=== PATIENT | female | born 1980 | race Caucasian/White ===

== ENCOUNTER 2018-12-04 12:58 | Emergency (ER) | payer OTHER ==
[2018-12-04 13:49] LABS: BASO % 0.5 % (0.0-2.0); EOS # 0.1 K/uL (0.0-0.7); EOS % 1.7 % (0.0-4.0); HEMOGLOBIN 13.8 g/dL (11.0-16.0); LYMPH # 1.9 K/uL (1.0-4.3); LYMPH % 26.9 % (20.0-40.0); MEAN CELL VOLUME 87.6 fL (81.0-99.0); MEAN CORPUSCULAR HEMOGLOBIN 28.8 pg (27.0-31.0); MEAN CORPUSCULAR HGB CONC 32.9 g/dL (33.0-37.0); MEAN PLATELET VOLUME 7.8 fL (7.2-11.7); MONO # 0.3 K/uL (0.0-0.8); NEUT # 4.7 K/uL (1.8-7.0); NEUT % 66.9 % (50.0-75.0); NRBC % 0.1 % (0.0-2.0); RBC 4.81 Mil/uL (3.80-5.20); RED CELL DISTRIBUTION WIDTH 12.9 % (11.5-14.5)
[2018-12-04 13:59] LABS: HCG,QUALITATIVE URINE NEGATIVE (NEGATIVE)
[2018-12-04 14:03] LABS: SQUAMOUS EPITHIAL 2 /hpf (0-5); URINE BILIRUBIN NEGATIVE (NEGATIVE); URINE BLOOD NEGATIVE (NEGATIVE); URINE CLARITY Clear (Clear); URINE COLOR Yellow (YELLOW); URINE GLUCOSE (UA) NORMAL (Normal); URINE LEUKOCYTE ESTERASE NEG Leu/uL (Negative); URINE PROTEIN NEGATIVE (NEGATIVE); URINE UROBILINOGEN NORMAL mg/dL (0.2-1.0)
[2018-12-04 14:06] LABS: ALB/GLOB RATIO 1.7 (1.0-2.1); ALBUMIN 4.7 g/dL (3.5-5.0); ALT/SGPT 15 U/L (9-52); AST/SGOT 34 U/L (14-36); BLOOD UREA NITROGEN 13 mg/dL (7-17); CALCIUM 9.3 mg/dl (8.6-10.4); GFR NON-AFRICAN AMERICAN > 60
--- NOTE | 2018-12-04 14:23 | C.PDOC ---
History Of Present Illness 38 year old female presents to the emergency department with complaints of headache described as occipital discomfort and pressure. 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 At the moment, patient states that the pain has recurred and she now has left- sided pressure in her occipital area and left jaw, radiating down her neck. Patient reports a chronic history of neck issues due to degenerative c-spine disease. Patient also reports stabbing left chest wall pain. Patient states that her musculoskeletal pain has existed for one year on and off, but the pain has gotten worse today. At work, patient's blood pressure was obtained to be 155/95, patient states her BP is normally around 90/50. Patient also reports a "strange sensation" in her left leg, but denies numbness, weakness, or visual disturbance. Time Seen by Provider: 12/04/18 13:26 Chief Complaint (Nursing): Dizziness/Lightheaded History Per: Patient History/Exam Limitations: no limitations Onset/Duration Of Symptoms: Days Current Symptoms Are (Timing): Still Present Quality: Pressure, "Pain" Preceeding Symptoms: denies: Visual Disturbances Associated Symptoms: denies: Blurred Vision, Nausea, Vomiting, Extremity Weakness Past Medical History Reviewed: Historical Data, Nursing Documentation, Vital Signs Vital Signs: Last Vital Signs Temp 98.9 F 12/04/18 13:22 Pulse 104 H 12/04/18 13:13 Resp 18 12/04/18 13:13 BP 122/70 12/04/18 13:13 Pulse Ox 100 12/04/18 13:13 - Medical History PMH: No Chronic Diseases Surgical History: No Surg Hx Family History: States: No Known Family Hx - Social History Hx Alcohol Use: Yes Hx Substance Use: No - Immunization History Hx Tetanus Toxoid Vaccination: No Hx Influenza Vaccination: Yes Hx Pneumococcal Vaccination: No Review Of Systems Constitutional: Negative for: Fever, Chills Eyes: Negative for: Vision Change Cardiovascular: Positive for: Chest Pain Musculoskeletal: Positive for: Neck Pain, Shoulder Pain, Other (jaw pain) Neurological: Positive for: Headache. Negative for: Weakness, Numbness Physical Exam - Physical Exam Appears: Non-toxic, No Acute Distress Skin: Normal Color, Warm, Dry Head: Atraumatic, Normacephalic Eye(s): bilateral: Normal Inspection, PERRL, EOMI Nose: Normal Oral Mucosa: Moist Neck: Normal, Supple, No Other (point tenderness) Chest: Symmetrical, Tenderness (slight muscular tenderness to left anterior pectoralis) Cardiovascular: Rhythm Regular, No Murmur Respiratory: Normal Breath Sounds, No Rales, No Rhonchi, No Wheezing Gastrointestinal/Abdominal: Soft, No Tenderness, No Guarding, No Rebound Extremity: Normal ROM Neurological/Psych: Oriented x3, Normal Speech, Normal Cognition, Normal Cranial Nerves, Normal Motor, Normal Sensation, Normal Reflexes ED Course And Treatment - Laboratory Results Result Diagrams: 12/04/18 13:40 12/04/18 13:40 Lab Results: Urine Color Yellow (YELLOW) 12/04/18 13:47 Urine Clarity Clear (Clear) 12/04/18 13:47 Urine pH 6.0 (5.0-8.0) 12/04/18 13:47 Ur Specific [place] 1.013 (1.003-1.030) 12/04/18 13:47 Urine Protein Negative mg/dL (NEGATIVE) 12/04/18 13:47 Urine Glucose (UA) Normal mg/dL (Normal) 12/04/18 13:47 Urine Ketones Trace mg/dL (NEGATIVE) 12/04/18 13:47 Urine Blood Negative (NEGATIVE) 12/04/18 13:47 Urine Nitrate Negative (NEGATIVE) 12/04/18 13:47 Urine Bilirubin Negative (NEGATIVE) 12/04/18 13:47 Urine Urobilinogen Normal mg/dL (0.2-1.0) 12/04/18 13:47 Ur Leukocyte Esterase Neg Leanne/uL (Negative) 12/04/18 13:47 Urine WBC (Auto) 1 /hpf (0-5) 12/04/18 13:47 Urine RBC (Auto) 2 /hpf (0-3) 12/04/18 13:47 Ur Squamous Epith Cells 2 /hpf (0-5) 12/04/18 13:47 Urine HCG, Qual Negative (NEGATIVE) 12/04/18 13:47 Urine HCG, Qual Negative (NEGATIVE) 12/04/18 13:47 ECG: Interpreted By Me, Viewed By Me ECG Interpretation: Abnormal Interpretation Of ECG: Normal sinus rhythm with sinus arrythmia at 98bpm, possible left atrial enlargement, cannot rule out anterior infarct, age undetermined. Abnormal EKG O2 Sat by Pulse Oximetry: 100 (RA) Pulse Ox Interpretation: Normal - CT Scan/US CT Head Other Rad Studies (CT/US): Read By Radiologist, Radiology Report Reviewed CT/US Interpretation: IMPRESSION: No acute intracranial pathology identified. C-spine CT Other Rad Studies (CT/US): Read By Radiologist, Radiology Report Reviewed CT/US Interpretation: Impression: Straightening of the normal cervical lordosis may be related to muscle spasm or positioning. No evidence of acute fracture or subluxation. Reevaluation Time: 15:46 Reassessment Condition: Improved (vital signs remain normal.) Medical Decision Making Medical Decision Making: Plan: EKG CT C-Spine CT Head CMP CBC HCG Qualitative Urine Urinalysis Disposition Counseled Patient/Family Regarding: Studies Performed, Diagnosis, Need For Followup, Rx Given - Disposition Referrals: Dipak Rolon MD [Medical Doctor] - Disposition: HOME/ ROUTINE Disposition Time: 15:47 Condition: IMPROVED Prescriptions: Cyclobenzaprine [Cyclobenzaprine HCl] 10 mg PO TID PRN #30 tab PRN Reason: Muscle Spasm Naproxen [Naprosyn] 1 tab PO BID PRN #25 tab PRN Reason: Pain Instructions: Muscle Spasms (DC), Tension Headache (DC) Forms: [employer] (I[place]ic) - Clinical Impression Clinical Impression: Spasm of cervical paraspinous muscle, Tension type headache - Scribe Statement The provider has reviewed the documentation as recorded by the Scribe (Sanjeev Shetty) Provider Attestation: All medical record entries made by the Scribe were at my direction and personally dictated by me. I have reviewed the chart and agree that the record accurately reflects my personal performance of the history, physical exam, medical decision making, and the department course for this patient. I have also personally directed, reviewed, and agree with the discharge instructions and disposition.
--- NOTE | 2018-12-04 15:10 | CT ---
Date of service: 12/04/2018 PROCEDURE: CT HEAD WITHOUT CONTRAST. HISTORY: Headache COMPARISON: None available. TECHNIQUE: Axial computed tomography images were obtained through the head/brain without intravenous contrast. Radiation dose: Total exam DLP = 968.27 mGy-cm. This CT exam was performed using one or more of the following dose reduction techniques: Automated exposure control, adjustment of the mA and/or kV according to patient size, and/or use of iterative reconstruction technique. FINDINGS: HEMORRHAGE: No intracranial hemorrhage. BRAIN: No mass effect or edema. No atrophy or chronic microvascular ischemic changes. VENTRICLES: No hydrocephalus. CALVARIUM: Unremarkable. PARANASAL SINUSES: Unremarkable as visualized. No significant inflammatory changes. MASTOID AIR CELLS: Unremarkable as visualized. No inflammatory changes. OTHER FINDINGS: None. IMPRESSION: No acute intracranial pathology identified.
[2018-12-04 15:13] VITALS: O2SAT 100
--- NOTE | 2018-12-04 15:19 | CT ---
Date of service: 12/04/2018 CT cervical spine without IV contrast Indication: Neck pain Comparison: None available. Technique: Axial computed tomography images were obtained of the cervical spine without the use of intravenous contrast. Coronal and sagittal reformatted images were created and reviewed. This CT exam was performed using 1 or more of the following dose reduction techniques: Automated exposure control, adjustment of the MAA and/or kV according to patient size, and/or use of iterative reconstruction technique. Radiation dose: Total exam DLP = 370.61 mGy-cm. Findings: Straightening of the normal cervical lordosis may be related to muscle spasm or positioning. There is no evidence of acute fracture or subluxation. There is preserved alignment, vertebral body height, intervertebral disc spaces. The prevertebral soft tissues and spinolaminar lines appear intact. The lateral masses are preserved. The dens tip is intact. There is proper alignment of the lateral masses of C1 with the C2 vertebral body. Included portions of the thyroid gland appear unremarkable. Included portions of lung apices appear clear. Impression: Straightening of the normal cervical lordosis may be related to muscle spasm or positioning. No evidence of acute fracture or subluxation.
[2018-12-04 15:48] VITALS: BP 112/73; PULSE 88; RESP 20; TEMP 98.5
== END 2018-12-04 16:00 | disposition home or self-care (01) ==
LOC: C.ER 12:58
DX: G44.209 Tension-type headache, unspecified, not intractable (principal); M62.838 Other muscle spasm